=== PATIENT | male | born 1970 | race African-American/Black ===

== ENCOUNTER 2016-09-01 19:13 | Emergency (ER) | payer SELFPAY ==
[2016-09-01 19:20] VITALS: BP 157/96; PULSE 76; TEMP 97.7; BMI 24.1
--- NOTE | 2016-09-01 19:57 | PDOC ---
History of Present Illness - General Stated Complaint: NEEDS DOCTOR NOTE Time Seen by Provider: 09/01/16 19:42 History Source: Patient - History of Present Illness Timing/Duration: 1 week Associated Symptoms: reports: cough, malaise. denies: fever/chills, headaches, nausea/vomiting, shortness of breath Past History - Past Medical History Allergies/Adverse Reactions: Allergies Allergy/AdvReac Type Severity Reaction Status Date / Time No Known Allergies Allergy Verified 09/01/16 19:16 Home Medications: Ambulatory Orders NK [No Known Home Medication] 03/01/16 Other medical history: denies - Immunization History Immunization Up to Date: No - Psycho/Social/Smoking Cessation Hx Anxiety: No Suicidal Ideation: No Smoking Status: No Smoking History: Current some day smoker Number of Cigarettes Smoked Daily: 0 Information on smoking cessation initiated: Yes 'Breaking Loose' booklet given: 09/01/16 Hx Alcohol Use: Yes (SOCIAL) Drug/Substance Use Hx: No Substance Use Type: None Review of Systems - Review of Systems Constitutional: No: Chills, Fever Respiratory: Yes: Cough ABD/GI: No: Diarrhea, Nausea, Vomiting *Physical Exam - Vital Signs Last Vital Signs Temp Pulse Resp BP Pulse Ox 97.7 F 76 18 157/96 100 09/01/16 19:17 09/01/16 19:17 09/01/16 19:17 09/01/16 19:17 09/01/16 19:17 - Physical Exam General Appearance: Yes: Appropriately Dressed. No: Apparent Distress HEENT: positive: Normal ENT Inspection, Normal Voice, TMs Normal, Pharynx Normal. negative: Scleral Icterus (R), Scleral Icterus (L) Neck: positive: Supple. negative: Lymphadenopathy (R), Lymphadenopathy (L) Integumentary: positive: Dry, Warm Neurologic: positive: Fully Oriented, Alert, Normal Mood/Affect Medical Decision Making - Medical Decision Making 09/01/16 19:53 46 yo male, no sig history, here requesting doctor's note saying that he is okay to return to work. Patient states over the weekend he had a cough that has since improved and that his boss called him to work the weekend and because he informed his boss he was ill, boss sent him home from work today to get note clearing him to return. Well-appearing and stable with unremarkable exam. Discharge with work note 09/01/16 19:56 *DC/Admit/Observation/Transfer Diagnosis at time of Disposition: Cough - Discharge Dispostion Disposition: HOME Condition at time of disposition: Good - Patient Instructions Printed Discharge Instructions: DI for Viral Upper Respiratory Infection -- Adult - Post Discharge Activity Work/School Note: Back to Work
== END 2016-09-01 20:05 | disposition home or self-care (01) ==
LOC: JERFT 19:13
DX: J06.9 Acute upper respiratory infection, unspecified (principal); B97.89 Other viral agents as the cause of diseases classified elsewhere
CPT/HCPCS: 99281-25

== ENCOUNTER 2017-02-12 13:27 | Emergency (ER) | payer OTHER ==
[2017-02-12 13:35] VITALS: BMI 24.1
--- NOTE | 2017-02-12 13:46 | PDOC ---
History of Present Illness - General Chief Complaint: Headache Stated Complaint: HEADACHE/DIZZINESS Time Seen by Provider: 02/12/17 13:46 History Source: Patient Exam Limitations: No Limitations - History of Present Illness Initial Comments: 02/12/17 13:51 The patient is a 46-year-old male with a significant past medical history of prior similar headaches, previous episode of ethmoid sinusitis, who presents to the emergency department with a left sided headache which she has had for the past 18 hours. The headache began gradually. It is now of moderate intensity. It is a dull, throbbing pain. It is localized to the left side of his head. It is associated with minimal nausea, but no vomiting. He also reports minimal "dizziness" which she qualifies as lightheadedness. He reports that it is made worse by exposure to the light, bilaterally as is, by moving the head. He took Motrin yesterday with partial relief. He denies neck pain or stiffness, fever, rash, visual changes, focal weakness or paresthesias. He denies head trauma. He does report several days of "head congestion" as well as green rhinorrhea. No fever. 02/12/17 13:53 Past History - Past Medical History Allergies/Adverse Reactions: Allergies Allergy/AdvReac Type Severity Reaction Status Date / Time No Known Allergies Allergy Verified 02/12/17 13:34 Home Medications: Ambulatory Orders NK [No Known Home Medication] 03/01/16 Other medical history: denies - Immunization History Immunization Up to Date: No - Psycho/Social/Smoking Cessation Hx Anxiety: No Suicidal Ideation: No Smoking Status: No Smoking History: Never smoked Number of Cigarettes Smoked Daily: 0 Information on smoking cessation initiated: No 'Breaking Loose' booklet given: 09/01/16 Hx Alcohol Use: Yes (occasional) Drug/Substance Use Hx: No Substance Use Type: None Review of Systems - Review of Systems Comments:: 02/12/17 13:52 CONSTITUTIONAL: Absent: fever, chills, diaphoresis, generalized weakness, malaise, loss of appetite HEENT: Absent: rhinorrhea, nasal congestion, throat pain, throat swelling, difficulty swallowing, mouth swelling, ear pain, eye pain, visual Changes CARDIOVASCULAR: Absent: chest pain, loss of consciousness, palpitations, irregular heart rate, peripheral edema RESPIRATORY: Absent: cough, shortness of breath, dyspnea with exertion, orthopnea, wheezing, stridor, hemoptysis GASTROINTESTINAL: Present: See history of present illness Absent: abdominal pain, abdominal distension, vomiting, diarrhea, constipation, melena, hematochezia GENITOURINARY: Absent: dysuria, frequency, urgency, hesitancy, hematuria, flank pain, genital pain MUSCULOSKELETAL: Absent: myalgia, arthralgia, joint swelling SKIN: Absent: rash, itching, pallor HEMATOLOGIC/IMMUNOLOGIC: Absent: easy bleeding, easy bruising, lymphadenopathy, frequent infections ENDOCRINE: Absent: unexplained weight gain, unexplained weight loss, heat intolerance, cold intolerance NEUROLOGIC: Present: See history of present illness Absent: focal weakness or paresthesias, unsteady gait, seizure, mental status changes, bladder or bowel incontinence PSYCHIATRIC: Absent: anxiety, depression, suicidal or homicidal ideation, hallucinations. *Physical Exam - Vital Signs Last Vital Signs Temp Pulse Resp BP Pulse Ox 98.4 F 75 19 124/91 100 02/12/17 13:32 02/12/17 13:32 02/12/17 13:32 02/12/17 13:32 02/12/17 13:32 - Physical Exam Comments: 02/12/17 13:52 GENERAL: Well developed, well nourished. Awake and alert. No acute distress. HEENT: Normocephalic, atraumatic. PERRLA, EOMI. No conjunctival pallor. Sclera are non- icteric. Moist mucous membranes. Oropharynx is clear. NECK: Supple. Full ROM. No JVD. Carotid pulses 2+ and symmetric, without bruits. No thyromegaly. No lymphadenopathy. CARDIOVASCULAR: Regular rate and rhythm. No murmurs, rubs, or gallops. Distal pulses are 2+ and symmetric. PULMONARY: No evidence of respiratory distress. Lungs clear to auscultation bilaterally. No wheezing, rales or rhonchi. ABDOMINAL: Soft. Non-tender. Non-distended. No rebound or guarding. No organomegaly. Normoactive bowel sounds. MUSCULOSKELETAL Normal range of motion at all joints. No bony deformities or tenderness. No CVA tenderness. EXTREMITIES: No cyanosis. No clubbing. No edema. No calf tenderness. SKIN: Warm and dry. Normal capillary refill. No rashes. No jaundice. NEUROLOGICAL: Alert, awake, appropriate. Cranial nerves 2-12 intact. No deficits to light touch and temperature in face, upper extremities and lower extremities. No motor deficits in the in face, upper extremities and lower extremities. Normoreflexic in the upper and lower extremities. Normal speech. Toes are down- going bilaterally. Gait is normal without ataxia. PSYCHIATRIC: Cooperative. Good eye contact. Appropriate mood and affect. Medical Decision Making - Medical Decision Making 02/12/17 14:55 Headache resolved after medications CT reviewed Will treat for chronic sinusitis and referred to ear nose and throat Clinical impression: Extensive chronic sinusitis Migraine headaches; resolved I discussed the physical exam findings, ancillary test results and final diagnoses with the patient. I answered all of the patient's questions. The patient was satisfied with the care received and felt comfortable with the discharge plan and treatment plan. The patient will call their primary care physician within 24 hours to arrange follow-up and will return to the Emergency Department with any new, persistent or worsening symptoms. *DC/Admit/Observation/Transfer Diagnosis at time of Disposition: Headache, Chronic sinusitis - Discharge Dispostion Disposition: HOME Condition at time of disposition: Improved - Referrals Referrals: Harlan Jett MD [Staff Physician] - Call tomorrow Huber Zuniga MD [Staff Physician] - Call tomorrow - Patient Instructions Printed Discharge Instructions: DI for Migraine Additional Instructions: Return to the emergency department immediately with ANY new, persistent or worsening symptoms. You MUST call and follow up with your doctor tomorrow. Please make sure your doctor reviews the results of your emergency department evaluation. It is extremely important that you follow-up with Dr. Zuniga, the ear nose and throat physician to whom I referred you. You have extensive sinus disease, and you require the expertise of an ear nose and throat physician. - Post Discharge Activity Work/School Note: Back to Work
[2017-02-12] MEDS ORDERED: SODIUM CHLORIDE 1,000 ML IV STA (13:50)
[2017-02-12] MEDS ORDERED: METOCLOPRAMIDE HCL INJECTION 10 MG/2 ML VIAL IVPUSH ONE (13:50)
[2017-02-12] MEDS ORDERED: METOCLOPRAMIDE HCL INJECTION 10 MG/2 ML VIAL ONE (14:02)
[2017-02-12 15:29] VITALS: BP 112/86; PULSE 86; TEMP 97.8
== END 2017-02-12 15:20 | disposition home or self-care (01) ==
LOC: JER 13:27
PROC: 3E033GC Introduction of Other Therapeutic Substance into Peripheral Vein, Percutaneous Approach (ICD-10-PCS; principal; 2017-02-12)
DX: J32.8 Other chronic sinusitis (principal)
CPT/HCPCS: 70450-TC; 99282-25

== ENCOUNTER 2023-07-29 11:33 | Emergency (ER) | payer OTHER ==
[2023-07-29 11:43] VITALS: BMI 24.9
[2023-07-29] MEDS ORDERED: FAMOTIDINE 20 MG/50 ML IVPB 20 MG/50 ML MG IVPB ONE ×2 (11:56→12:06)
[2023-07-29] MEDS ORDERED: SODIUM CHLORIDE 1,000 ML IV STA (11:56)
[2023-07-29] MEDS ORDERED: morphine CARPU-JECT 4 MG/1 ML DISP.SYRIN IVPUSH ONE (11:57)
[2023-07-29] MEDS ORDERED: morphine SULFATE 4 MG/ML VIAL ONE (12:06)
[2023-07-29 12:38] LABS: BASO % 0.7 % (0-2.0); HEMATOCRIT 42.4 % (35.4-49); HEMOGLOBIN 14.1 GM/dL (11.7-16.9); LYMPH % 15.7 % (8-40); MCH 29.2 pg (25.7-33.7); MCHC 33.3 g/dl (32.0-35.9); MEAN CELL VOLUME 87.7 fl (80-96); MEAN PLT VOLUME 8.1 fl (7.5-11.1); NEUT % 74.6 % (42.8-82.8); PLATELET COUNT 162 10^3/uL (134-434); RBC 4.83 M/mm3 (4.00-5.60); RDW 13.1 % (11.9-15.9); WHITE BLOOD COUNT 3.5 K/mm3 (4.0-10.0)
[2023-07-29 13:07] LABS: POTASSIUM 3.7 mmol/L (3.5-5.1)
[2023-07-29 13:08] LABS: INR 1.21 (0.83-1.09)
[2023-07-29 13:09] LABS: CALCIUM 8.1 mg/dL (8.5-10.1)
[2023-07-29 13:10] LABS: ALBUMIN 3.1 g/dl (3.4-5.0); BLOOD UREA NITROGEN 13.2 mg/dL (7-18)
[2023-07-29 13:13] LABS: CREATININE 1.1 mg/dL (0.55-1.3)
[2023-07-29 13:14] LABS: TOT PROT 6.5 g/dl (6.4-8.2)
[2023-07-29 13:15] LABS: BILIRUBIN,TOTAL 0.5 mg/dL (0.2-1)
[2023-07-29 14:23] LABS: EPI CELLS 2 /uL (0-25.1); HYALINE CASTS 0 /uL (0-3.1); URINE APPEARANCE CLEAR; URINE BACTERIA 3 /uL (0-1359); URINE BILIRUBIN NEGATIVE (NEGATIVE); URINE COLOR YELLOW; URINE GLUCOSE (UA) NEGATIVE (NEGATIVE); URINE KETONE NEGATIVE (NEGATIVE); URINE LEUK ESTERASE NEGATIVE (NEGATIVE); URINE NITRITE NEGATIVE (NEGATIVE); URINE PROTEIN 2+ (NEGATIVE); URINE RBC 89 /uL (0-23.9); URINE WBC 5 /uL (0-25.8)
[2023-07-29 16:25] VITALS: BP 149/80; PULSE 66; RESP 16; TEMP 99.9
== END 2023-07-29 16:24 | disposition home or self-care (01) ==
LOC: JER 11:33
PROC: 3E033GC Introduction of Other Therapeutic Substance into Peripheral Vein, Percutaneous Approach (ICD-10-PCS; principal; 2023-07-29)
PROC: 3E033GC Introduction of Other Therapeutic Substance into Peripheral Vein, Percutaneous Approach (ICD-10-PCS; 2023-07-29)
PROC: 3E0337Z Introduction of Electrolytic and Water Balance Substance into Peripheral Vein, Percutaneous Approach (ICD-10-PCS; 2023-07-29)
DX: R10.84 Generalized abdominal pain (principal); R11.2 Nausea with vomiting, unspecified; N30.91 Cystitis, unspecified with hematuria; K29.00 Acute gastritis without bleeding
CPT/HCPCS: 36415; 71045-TC-FY; 74177-TC; 80053; 81003; 83690; 85025; 85610; 86850; 86900; 86901; 93005; 93010; 99285-25; Q9967